=== PATIENT | female | born 1945 | race Caucasian/White ===

== ENCOUNTER 2017-05-24 18:51 | Inpatient (IN) ==
[2017-05-24] MEDS ORDERED: ONDANSETRON 4 MG/2 ML VIAL IV STA (19:36)
[2017-05-24] MEDS ORDERED: SODIUM CHLORIDE 0.9% 1,000 ML IV STA (19:36)
--- NOTE | 2017-05-24 19:42 | Emergency Department Note ---
Arrival - Arrival Chief Complaint: Nausea/Vomiting/Diarrhea Stated Complaint: nausea/diarrhea/headache/weakness/times 2 days ED Nursing Triage Note: Patient complains of severe, nausea, vomiting, fever, headache and weakness that has been going on for the past two days. Patient states that she has not been able to keep anything down. No active vomiting noted upon triage. Patient has a history of HTN, diabetes, colon ca. Patient states that her blood sugar prior to triage was 131. Awake, alert and able to answer questions upon triage. Mode of Arrival: Wheelchair Limitations: No Limitations Source: Patient Time Seen by Provider: 05/24/17 19:23 - History of Present Illness HPI Narrative: Patient complains of nausea, vomiting and diarrhea for the past 2 days. She says she has not had much intake due to the nausea and vomiting and now feels weak and dizzy and has generalized body aches and malaise. She also complains of a "frontal and maxillary sinus headache" and a nonproductive "cough from sinus drainage." She has felt hot and cold but does not know if she has had fever. No known sick contacts. Date of Last Menstrual Period: hysterectomy Allergies/Adverse Reactions: Allergies Allergy/AdvReac Type Severity Reaction Status Date / Time codeine Allergy Nausea Verified 05/24/17 19:04 Home Medications: Home Medications Medication Instructions Recorded Confirmed Type Fluoxetine HCl 20 mg PO DAILY 06/27/15 05/24/17 History Insulin NPH Hum/Reg Insulin Hm 100 unit SUBCUT DAILY 06/27/15 05/24/17 History [Relion Novolin 70-30 Vial] Rosuvastatin [Crestor] 20 mg PO DAILY 06/27/15 05/24/17 History Verapamil HCl [Verapamil ER Cap] 120 mg PO DAILY 06/27/15 05/24/17 History metFORMIN [Glucophage] 500 mg PO DAILY 06/27/15 05/24/17 History raNITIdine HCl [Zantac Tab] 300 mg PO DAILY 06/27/15 05/24/17 History Aspirin EC Tab 81 mg PO DAILY tablet 06/28/15 05/24/17 Rx Lisinopril [Prinivil] 10 mg PO DAILY #30 tablet 06/28/15 05/24/17 Rx Pantoprazole Tab [Protonix Tab] 40 mg PO BID #60 tablet 06/28/15 05/24/17 Rx Medical Supply, Miscellaneous 1 tablespoon PO DIRECTED #200 09/14/15 Rx [Airzone & Miniwright Afs] each Losartan [Cozaar] 50 mg PO DAILY 05/24/17 05/24/17 History hydroCHLOROthiazide 12.5 mg PO Q6H 05/24/17 05/24/17 History [Hydrochlorothiazide] Review of System - Review of System 12 point system: reviewed and no additional remarkable complaints except as stated - Review of System Constitutional: Present: chills, fever (Subjective), weakness Head/Ears/Nose/Throat: Present: other (Postnasal drip). Absent: nasal drainage , sore throat Respiratory: Present: cough. Absent: respiratory distress, wheezing Cardiovascular: Absent: chest pain Gastrointestinal: Present: nausea, vomiting, diarrhea. Absent: abdominal pain Genitourinary female: Absent: dysuria Neurological: Present: headache Medical,Surgical,& Family Hx - Medical History Cardio: History of: Hypertension No history of: Cerebrovascular Disease Endocrine: History of: Diabetes Mellitus (IDDM), Diabetes Mellitus (NIDDM), Dyslipidemia Rheumatology: No history of;: Rheumatoid Arthritis, Systemic Lupus Erythematosus Respiratory: History of: Obstructive Sleep Apnea No history of: Asthma, Respiratory Problems Genitourinary: No history of: Recurring Urinary Tract Infections Gastrointestinal: History of: GERD, Liver Problems (fatty liver), Gastrointestinal Cancer (malignant polyp removed), GI Problems (gastritis 2000) Musculoskeletal: History of: Musculoskeletal Problems (ARTHITIS "EVERYWHERE") Hematology: No history of: Blood Transfusion Reaction, Bleeding Problems Other: History of: Cancer (COLON CA) - Surgical History Cardiac Surgeries: Patient Denies: Cardiac Catheterization, Cardiac Surgery HEENT Surgeries: Surgical HX of: Tonsilectomy & Adenoidectomy Abdominal Surgeries: Surgical HX of: Abdominal Surgery (COLON CA REMOVAL 2013), Appendectomy, Cholecystectomy Reproductive Surgeries: Surgical HX of;: Section, Hysterectomy (FULL) - Family History Family History: Reports;: Family Cancer (FATHER- COLON CA), Family Diabetes ( MOTHER, FATHER, ALL SIBLINGS), Family Heart Disease (4 BROTHERS, MOTHER, FATHER) , Family Hypertension (ALL SIBLINGS, MOTHER AND FATHER) Denies;: Family Psychiatric Problems, Family Stroke - Social History Smoking Status: Never smoker Frequency of Alcohol Use: None Type of Drug Use: None Exam Physical Examination: GENERAL: Alert. No acute distress. HEENT: Normocephalic and atraumatic. There is no nasal drainage. No pharyngeal erythema or exudate. Dry mucous membranes NECK: Normal inspection. Supple. No lymphadenopathy or meningismus. LUNGS: No respiratory distress. Clear to auscultation bilaterally, no wheezes, rales or rhonchi. HEART: Regular rate and rhythm. ABDOMEN: Soft, nontender and nondistended with normoactive bowel sounds. Large midline scar with firm irregular area of dense scarring at the lower left. BACK: Normal inspection. SKIN: Color normal. Warm and dry. EXTREMITIES: Nontender. Normal range of motion. No pedal edema. NEUROLOGICAL/PSYCHIATRIC: Alert and oriented -3 with normal mood and affect. Cranial nerves normal. No motor or sensory deficit. Vital Signs: Vital Signs Temperature 98.3 F 05/24/17 19:07 Pulse Rate 87 05/24/17 19:21 Respiratory Rate 18 05/24/17 19:21 Blood Pressure 146/67 05/24/17 19:21 O2 Sat by Pulse Oximetry 99 05/24/17 19:21 Course Course Narrative: Note: The multiple negatives in the past medical history were not marked by me. They are the result of the triage process, past medical records or other unknown causes. Due to time constraints, these were not all reviewed with the patient and the backslashes were not removed from the chart. They should be ignored. - Reevaluation(s) Reevaluation #1: I have discussed the patient with Dr. Castañeda who will see her in the ER and admit. Time: 22:10 Results - Labs CBC & BMP: 05/24/17 20:36 05/24/17 20:36 Lab Results: I have reviewed the patients labs Labs: Laboratory Tests 05/24/17 05/24/17 20:36 20:36 Magnesium 1.7 L Total Bilirubin 1.10 H AST 25 ALT 28 Alkaline Phosphatase 40 L Amylase 137 H Lipase 820.0 H Urine RBC 1 Urine WBC 2 Urine Bacteria Few Ur Culture Indicated? Not indicated Microbiology 05/24/17 20:36 Nasal Aspirate Influenza Types A,B Antigen (FABRICIO) - Final Negative for Influenza A Ag Negative for Influenza B Ag - Impressions KUB shows moderate distention of bowel diffusely. Chest x-ray shows no acute abnormality. Disposition Clinical Impression: Pancreatitis, Headache Case discussed with: patient, patient's family Disposition: Still a Patient Condition: Stable Time of Disposition: 22:10
[2017-05-24] MEDS ORDERED: ONDANSETRON 4 MG/2 ML VIAL ONE (20:12)
--- NOTE | 2017-05-24 20:18 | XRay Report ---
Portable chest. Indication: Cough. Comparison: June 27, 2015. The heart is normal in size. The mediastinal contours are unremarkable. The pulmonary vasculature is normal. There is no consolidation, pneumothorax, or pleural effusion. Degenerative changes are noted within the spinal column. Impression: No acute abnormality. PROCEDURE INTERPRETED AT [facility] DEPARTMENT OF RADIOLOGY Final Report Signed by: Dr. Gabi Tabor
--- NOTE | 2017-05-24 20:19 | XRay Report ---
KUB. Indication: Vomiting. Comparison: September 14, 2015. Surgical clips are noted in the right upper quadrant. There is gaseous distention of small and large intestine to the level of the rectum. Vascular calcifications are noted. Injection granulomas of the hips. Impression: Moderate gaseous distention of bowel diffusely. PROCEDURE INTERPRETED AT [facility] DEPARTMENT OF RADIOLOGY Final Report Signed by: Dr. Gabi Tabor
[2017-05-24 21:12] LABS: Basophils % 0.3 % (0.0-0.8); Hematocrit 34.5 VOL% (35.7-47.0); Hemoglobin 12.4 GM/DL (12.0-16.0); Immature Granulocytes % 0.4 %; Immature Granulocytes Absolute 0.04 #; Lymphocytes # 1.3 10*3/uL (1.4-4.0); Lymphocytes % 12.9 % (21.3-54.2); Mean Corpuscular HGB Conc 35.9 GM/DL (32-36); Mean Corpuscular Hemoglobin 32 PG (27-34); Mean Corpuscular Volume 88.5 FL (87-102); Mean Platelet Volume 10.6 FL (9.6-12.0); Monocytes # 0.8 10*3/uL (0.11-0.8); Monocytes % 7.4 % (1.7-12.7); Neutrophils # 8.2 10*3/uL (1.4-7.4); Platelet Count 229 T/CUMM (130-400); Red Cell Distribution Width 12.4 % (9.3-17.3); White Blood Count 10.4 T/CUMM (4-12)
[2017-05-24 21:32] LABS: Albumin 3.8 G/DL (3.4-5.0); Bilirubin,Total 1.1 MG/DL (0.2-1.0); Calcium 8.6 MG/DL (8.5-10.1); Magnesium 1.7 MG/DL (1.8-2.4); Osmolality,Calculated 277.7 MOS/KG (273-304); Potassium 4.7 MMOL/L (3.5-5.1)
[2017-05-24 21:52] LABS: Apearance,Urine Slightly Hazy (Clear); Bacteria,Urine Few /HPF (Few); Bilirubin,Urine Negative (Negative); Blood, Urine Negative (Negative); Glucose,Urine (UA) Negative (Negative); Ketones,Urine Negative (Negative); Mucus,Urine Few /LPF (Occasional); Nitrite,Urine Negative (Negative); Protein,Urine 30 MG/DL; RBC,Urine 1 /HPF (0-4); Transitional Epi Cells,Urine Occasional /HPF (<1); Urine Color Yellow (Yellow); Urine Specific Gravity 1.019 (1.001-1.035); Urine Urobilinogen < 2.0 EU/DL (0.2-1.0); WBC,Urine 2 /HPF (0-6)
[2017-05-24] MEDS ORDERED: KETOROLAC 30 MG/1 ML VIAL IV STA (22:04)
[2017-05-24] MEDS ORDERED: KETOROLAC 30 MG/1 ML VIAL ONE (22:07)
[2017-05-24] MEDS ORDERED: traZODone 50 MG TABLET PO PRN (23:03)
[2017-05-24] MEDS ORDERED: GLUCAGON 1 MG VIAL IM PRN (23:10)
[2017-05-24] MEDS ORDERED: DEXTROSE 50% 25 GM/50 ML VIAL IV PRN (23:10)
[2017-05-24] MEDS ORDERED: NON-FORMULARY MEDICATION (Hydrochlorothiazide [Hydrochlorothiazide] 12.5 MG) PO SCH (23:15)
[2017-05-24] MEDS ORDERED: [UNRECOGNIZED DRUG - OTHER] PO SCH (23:15)
--- NOTE | 2017-05-24 23:15 | Hospitalist History & Physical ---
Assessment and Plan (1) Gastroenteritis Status: Acute Current Visit: Yes (2) Gastritis Status: Acute Current Visit: No (3) Pancreatitis Status: Acute Assessment and plan: Our plan for this patient will be admitting her to our service. We will put her on IV fluids and clear liquid diet. Check her lipase in the morning. Check her stool for C. difficile and other culture. Follow-up labs in the morning and adjust plans appropriate. Hold her scheduled insulin doses and sliding scale for now. Current Visit: Yes History of Present Illness Chief complaint: Nausea vomiting diarrhea History of present illness: Ms. Osullivan is a 72 year old female past medical history significant for diabetes includes cholesterol hypertension and colon cancer who was in her normal state of health to the past few days. Patient has a history of multiple complaints and has various problems with her sinuses and she was on some antibiotics but for the past 3 days she has had significant diarrhea and emesis. Patient reports that it started on . Her last episode of emesis and diarrhea was today. Family reports that the diarrhea has a very putrid odor to it I was consulted to admit her. Patient found to have an elevated lipase. Home Medications Medication Instructions Recorded Confirmed Type Fluoxetine HCl 20 mg PO DAILY 06/27/15 05/24/17 History Insulin NPH Hum/Reg Insulin Hm 100 unit SUBCUT DAILY 06/27/15 05/24/17 History [Relion Novolin 70-30 Vial] Rosuvastatin [Crestor] 20 mg PO DAILY 06/27/15 05/24/17 History Verapamil HCl [Verapamil ER Cap] 120 mg PO DAILY 06/27/15 05/24/17 History metFORMIN [Glucophage] 500 mg PO DAILY 06/27/15 05/24/17 History raNITIdine HCl [Zantac Tab] 300 mg PO DAILY 06/27/15 05/24/17 History Aspirin EC Tab 81 mg PO DAILY tablet 06/28/15 05/24/17 Rx Lisinopril [Prinivil] 10 mg PO DAILY #30 tablet 06/28/15 05/24/17 Rx Pantoprazole Tab [Protonix Tab] 40 mg PO BID #60 tablet 06/28/15 05/24/17 Rx Medical Supply, Miscellaneous 1 tablespoon PO DIRECTED #200 09/14/15 Rx [Airzone & Miniwright Afs] each Losartan [Cozaar] 50 mg PO DAILY 05/24/17 05/24/17 History hydroCHLOROthiazide 12.5 mg PO Q6H 05/24/17 05/24/17 History [Hydrochlorothiazide] Allergies Allergy/AdvReac Type Severity Reaction Status Date / Time codeine Allergy Nausea Verified 05/24/17 19:04 Medical,Surgical,& Family Hx - Medical History Cardio: History of: Hypertension No history of: Cerebrovascular Disease Neurology: No history of: Cerebrovascular Accident Endocrine: History of: Diabetes Mellitus (IDDM), Diabetes Mellitus (NIDDM), Dyslipidemia Rheumatology: No history of;: Rheumatoid Arthritis, Systemic Lupus Erythematosus Respiratory: History of: Obstructive Sleep Apnea No history of: Asthma, Respiratory Problems Genitourinary: No history of: Recurring Urinary Tract Infections Gastrointestinal: History of: GERD, Liver Problems (fatty liver), Gastrointestinal Cancer (malignant polyp removed), GI Problems (gastritis 1999) Musculoskeletal: History of: Musculoskeletal Problems (ARTHITIS "EVERYWHERE") Hematology: No history of: Blood Transfusion Reaction, Bleeding Problems Other: History of: Cancer (COLON CA) - Surgical History Cardiac Surgeries: Patient Denies: Cardiac Catheterization, Cardiac Surgery HEENT Surgeries: Surgical HX of: Tonsilectomy & Adenoidectomy Abdominal Surgeries: Surgical HX of: Abdominal Surgery (COLON CA REMOVAL 2013), Appendectomy, Cholecystectomy Reproductive Surgeries: Surgical HX of;: Section, Hysterectomy (FULL) - Family History Family History: Reports;: Family Cancer (FATHER- COLON CA), Family Diabetes ( MOTHER, FATHER, ALL SIBLINGS), Family Heart Disease (4 BROTHERS, MOTHER, FATHER) , Family Hypertension (ALL SIBLINGS, MOTHER AND FATHER) Denies;: Family Psychiatric Problems, Family Stroke - Social History Smoking Status: Never smoker Frequency of Alcohol Use: None Type of Drug Use: None 12 point system: reviewed and no additional remarkable complaints except as stated Exam - Constitutional Vitals: Period Temp Pulse Resp BP Sys/Bethea Pulse Ox Last 24 Hr 98.3 F 87-91 18-20 118-146/55-67 98-99 General appearance: morbidly obese - Head Head exam: Present: normal inspection - Eye Eye exam: Present: EOMI Pupils: Present: RAUL - ENT ENT exam: Present: normal exam - Neck Neck exam: Present: normal inspection - Respiratory Respiratory exam: Present: clear to auscultation bilaterally - Cardiovascular Cardiovascular exam: Present: regular rate and rhythm - GI/Abdominal GI/Abdominal exam: Present: normal bowel sounds, tenderness (Epigastrium) - Extremities Exam Extremities exam: Present: normal inspection - Back Exam Back exam: Present: normal inspection - Neurological Exam Neurological exam: Present: alert, oriented X3 - Psychiatric Psychiatric exam: Present: normal affect, normal mood - Skin Skin exam: Present: normal color Results - Labs CBC & BMP: 05/24/17 20:36 05/24/17 20:36
[2017-05-24] MEDS: KETOROLAC 30 MG/1 ML VIAL IV PRN (23:40)
[2017-05-24] MEDS: ACETAMINOPHEN 325 MG TABLET PO PRN (23:40)
[2017-05-25] MEDS: SODIUM CHLORIDE 0.9% 1,000 ML IV SCH ×2 (00:22→09:07)
[2017-05-25] MEDS ORDERED: METOCLOPRAMIDE 10 MG/2 ML VIAL IV ONE (04:08)
[2017-05-25] MEDS ORDERED: diphenhydrAMINE 50 MG/1 ML VIAL IV ONE (04:08)
[2017-05-25 06:33] LABS: Basophils % 0.3 % (0.0-0.8); Hematocrit 33.2 VOL% (35.7-47.0); Hemoglobin 11.7 GM/DL (12.0-16.0); Immature Granulocytes % 0.6 %; Immature Granulocytes Absolute 0.05 #; Lymphocytes # 1.1 10*3/uL (1.4-4.0); Lymphocytes % 14.1 % (21.3-54.2); Mean Corpuscular HGB Conc 35.2 GM/DL (32-36); Mean Corpuscular Hemoglobin 31 PG (27-34); Mean Corpuscular Volume 88.5 FL (87-102); Mean Platelet Volume 11.5 FL (9.6-12.0); Monocytes # 1.1 10*3/uL (0.11-0.8); Neutrophils # 5.5 10*3/uL (1.4-7.4); Platelet Count 202 T/CUMM (130-400); Red Blood Count 3.75 MC/CUMM (3.8-5.5); Red Cell Distribution Width 12.5 % (9.3-17.3); White Blood Count 7.7 T/CUMM (4-12)
[2017-05-25 07:09] LABS: Albumin 3.1 G/DL (3.4-5.0); Bilirubin,Total 1.6 MG/DL (0.2-1.0); Calcium 7.8 MG/DL (8.5-10.1); Osmolality,Calculated 279.8 MOS/KG (273-304); Potassium 4.4 MMOL/L (3.5-5.1); Total Protein 6.4 G/DL (6.4-8.3)
[2017-05-25 07:50] LABS: Hypochromasia Slight; Microcytosis 1+
[2017-05-25] MEDS: FAMOTIDINE 20 MG TABLET PO SCH (08:54)
[2017-05-25] MEDS: ROSUVASTATIN 20 MG TABLET PO SCH (08:54)
[2017-05-25] MEDS: FLUoxetine 20 MG CAPSULE PO SCH (08:55)
[2017-05-25] MEDS: ENOXAPARIN 40 MG/0.4 ML SYRINGE SUBCUT SCH (08:55)
[2017-05-25] MEDS: ASPIRIN EC 81 MG TABLET PO SCH (08:55)
[2017-05-25] MEDS: PANTOPRAZOLE 40 MG TABLET PO SCH ×2 (08:55→20:36)
[2017-05-25] MEDS: INSULIN REGULAR 100 UNIT/ML SUBCUT SCH ×4 (08:58→20:35)
[2017-05-25] MEDS ORDERED: LISINOPRIL 10 MG TABLET PO SCH (09:00)
[2017-05-25] MEDS ORDERED: VERAPAMIL SR 120 MG TABLET PO SCH (09:00)
[2017-05-25] MEDS ORDERED: LOSARTAN 50 MG TABLET PO SCH (09:00)
--- NOTE | 2017-05-25 11:57 | Hospitalist Progress Note ---
Assessment and Plan (1) Gastroenteritis Status: Acute Assessment and plan: gastroenteritis vs ileus, stool studies pending, replace diarrhea with 1/2 with bicarbonate and potassium Current Visit: Yes (2) Pancreatitis Status: Acute Assessment and plan: clear liquids, should resolve without intervention, nausea better Current Visit: Yes (3) Essential hypertension Status: Chronic Assessment and plan: hold blood meds for now Current Visit: No (4) Hypomagnesemia Status: Acute Assessment and plan: replace and recheck in am Current Visit: Yes Hospitalist: Subjective Interval history: Patient is feeling just miserable. She can even make it to the bathroom without pooping all over the floor and the toilet. Patient also reports having some bloody stools. Stool cultures have not been sent down yet. Patient is weak and lightheaded. I will stop her blood pressure medicines for now. Exam - Constitutional Vitals: Period Temp Pulse Resp BP Sys/Bethea Pulse Ox Last 24 Hr 96.5 F-100.4 F 87-98 18-20 111-146/51-74 95-99 Exam: Heart Rate-[tachy] Lungs-[CTAB] GI-[+bs soft, NT] Ext-[no edema] Neuro [Motor 5/5], [alert and oriented times 3] psych [normal mood and affect] General [no acute distress] Results - Labs CBC & BMP: 05/25/17 05:44 05/25/17 05:44 Lab Results: I have reviewed the past 24 hour labs Labs: stool studies pending - Diagnostic Findings Procedure: Chest x-ray: report reviewed by me (no acute changes ), KUB x-ray: report reviewed by me (moderate gaseous distention of bowel )
[2017-05-25] MEDS ORDERED: MAGNESIUM SULF RIDER 2 GM in PREMIX 1 EACH IV ONE (12:02)
[2017-05-25] MEDS: ONDANSETRON 4 MG/2 ML VIAL IV PRN ×2 (12:29→19:28)
[2017-05-25] MEDS: KETOROLAC 30 MG/1 ML VIAL IV PRN ×2 (12:29→19:28)
[2017-05-25] MEDS ORDERED: PROMETHAZINE 25 MG/1 ML VIAL IM PRN (12:38)
[2017-05-25] MEDS ORDERED: MORPHINE 2 MG/1 ML SYRINGE IV PRN (12:38)
[2017-05-25] MEDS: SODIUM ACETATE IV SCH (16:06)
[2017-05-25] MEDS: SODIUM CHLORIDE 0.45% IV SCH (16:06)
[2017-05-25] MEDS: POTASSIUM CHLORIDE IV SCH (16:06)
[2017-05-25] MEDS: ACETAMINOPHEN 325 MG TABLET PO PRN (19:32)
[2017-05-25] MEDS ORDERED: LOPERAMIDE 2 MG CAPSULE PO ONE (20:12)
[2017-05-26] MEDS: SODIUM ACETATE IV SCH ×3 (00:16→16:58)
[2017-05-26] MEDS: SODIUM CHLORIDE 0.45% IV SCH ×3 (00:16→16:58)
[2017-05-26] MEDS: POTASSIUM CHLORIDE IV SCH ×3 (00:16→16:58)
[2017-05-26] MEDS: LOPERAMIDE 2 MG CAPSULE PO PRN ×2 (02:21→20:36)
[2017-05-26 06:25] LABS: Basophils % 0.8 % (0.0-0.8); Eosinophils % 0.2 % (0.00-10.9); Hemoglobin 11.3 GM/DL (12.0-16.0); Immature Granulocytes % 0.2 %; Immature Granulocytes Absolute 0.01 #; Lymphocytes # 1.2 10*3/uL (1.4-4.0); Lymphocytes % 23.4 % (21.3-54.2); Mean Corpuscular HGB Conc 36.5 GM/DL (32-36); Mean Corpuscular Hemoglobin 32 PG (27-34); Mean Corpuscular Volume 87.8 FL (87-102); Mean Platelet Volume 10.6 FL (9.6-12.0); Monocytes # 1.3 10*3/uL (0.11-0.8); Monocytes % 24.8 % (1.7-12.7); Neutrophils # 2.6 10*3/uL (1.4-7.4); Neutrophils % 50.6 % (38.7-73.9); Platelet Count 200 T/CUMM (130-400); Red Blood Count 3.53 MC/CUMM (3.8-5.5); Red Cell Distribution Width 12.4 % (9.3-17.3); White Blood Count 5.2 T/CUMM (4-12)
[2017-05-26 06:51] LABS: Calcium 7.8 MG/DL (8.5-10.1); Magnesium 2.2 MG/DL (1.8-2.4); Osmolality,Calculated 275.8 MOS/KG (273-304); Potassium 4.8 MMOL/L (3.5-5.1)
[2017-05-26 07:13] LABS: Band Neutrophils 7 % (0-10); Lymphocytes 30 % (20-55); Segmented Neutrophils 46 % (50-85); Total Cells Counted 100
[2017-05-26 07:14] LABS: Hypochromasia 1+; Microcytosis 1+
[2017-05-26 07:15] LABS: Platelet Estimate Normal
[2017-05-26] MEDS: INSULIN REGULAR 100 UNIT/ML SUBCUT SCH ×4 (08:39→20:32)
[2017-05-26] MEDS: ONDANSETRON 4 MG/2 ML VIAL IV PRN ×2 (08:58→17:00)
[2017-05-26] MEDS: ROSUVASTATIN 20 MG TABLET PO SCH ×2 (09:00→17:00)
[2017-05-26] MEDS: FLUoxetine 20 MG CAPSULE PO SCH ×2 (09:00→16:59)
[2017-05-26] MEDS: ASPIRIN EC 81 MG TABLET PO SCH ×2 (09:00→17:00)
[2017-05-26] MEDS: FAMOTIDINE 20 MG TABLET PO SCH ×2 (09:00→16:59)
[2017-05-26] MEDS: PANTOPRAZOLE 40 MG TABLET PO SCH ×3 (09:00→20:27)
[2017-05-26] MEDS: ENOXAPARIN 40 MG/0.4 ML SYRINGE SUBCUT SCH (09:01)
--- NOTE | 2017-05-26 09:08 | Hospitalist Progress Note ---
Assessment and Plan (1) Gastroenteritis Status: Acute Assessment and plan: Patient seem to have acute gastroenteritis. We will continue with IV fluid monitor electrolytes and obtain CT scan abdomen to rule out any other pathology especially with the presence of elevated lipase on admission Current Visit: Yes (2) Pancreatitis Status: Acute Assessment and plan: Patient presented with a diarrhea and elevated lipase. I am not sure is acute pancreatitis or it this is due to current GI infection. CT scan abdomen may help to visualize pancreatic anatomy Current Visit: Yes (3) Anemia Status: Acute Assessment and plan: Just little drop of hemoglobin hematocrit since admission but patient has been hydrated. Notice stool occult blood positive. Patient has history of colon cancer consult GI Current Visit: Yes (4) Essential hypertension Status: Chronic Assessment and plan: Blood pressure has been controlled Current Visit: No Hospitalist: Subjective Interval history: Ms. Osullivan is a 72 year old female past medical history significant for diabetes includes, hypercholesterolemia, hypertension and colon cancer. She had partial colectomy in 2012 in 2013. She had colonoscopy last year. She was admitted on May 24, 2017 with complaint of abdominal pain nausea vomiting and diarrhea. She reported pain in the abdomen all over. She has multiple episodes of loose stool about 9-10 per day. She also report low-grade fever. She was recently on antibiotics for a sinus. She had an evaluation after his admission here but C differential was negative. She had elevated lipase at 820 on admission. Yesterday it was down to 607. She has been on IV fluid. She is symptomatic concern about her diarrhea and not able to tolerate any p.o. diet. Exam - Constitutional Vitals: Period Temp Pulse Resp BP Sys/Bethea Pulse Ox Last 24 Hr 97.8 F-100.4 F 73-93 16-18 112-134/50-76 94-98 General appearance: no acute distress - Respiratory Respiratory exam: Present: clear to auscultation bilaterally. Absent: rales, rhonchi - Cardiovascular Cardiovascular exam: Present: regular rate and rhythm. Absent: tachycardia - GI/Abdominal GI/Abdominal exam: Present: normal bowel sounds, tenderness (Scar from previous surgery noted in midline with some subcutaneous palpable nodule structures from previous surgery and reported chronic by patient .some discomfort all over the abdomen but no rigidity or rebound.), soft. Absent: rebound - Extremities Exam Extremities exam: Present: normal inspection. Absent: edema - Neurological Exam Neurological exam: Present: alert, oriented X3 Results - Labs CBC & BMP: 05/26/17 06:09 05/26/17 06:09
--- NOTE | 2017-05-26 12:19 | Gastrointestinal Progress Note ---
Exam (Progress Note) - Constitutional Vitals: Period Temp Pulse Resp BP Sys/Bethea Pulse Ox Last 24 Hr 97.8 F-100.1 F 73-93 16-18 112-138/50-76 92-97 Results - Labs CBC & BMP: 05/26/17 06:09 05/26/17 06:09
--- NOTE | 2017-05-26 12:25 | Gastrointestinal Consult Note ---
<Vickie Nye - Last Filed: 05/26/17 12:19> Assessment and Plan (1) Abdominal pain Status: Acute Assessment and plan: 05/26-5 day history of left lower quadrant abdominal pain with associated intractable diarrhea, nausea and vomiting. Trace amount of occult blood in stool, otherwise negative stool studies with negative C. difficile. Improvements in nausea and vomiting with continued intractable diarrhea with incontinence and nocturnal defecation. CT of abdomen with contrast pending for this morning. Plan an addendum to follow by Dr. Larose. Current Visit: Yes History of Present Illness Chief complaint: Nausea, vomiting, diarrhea History of present illness: Ms. Osullivan is a 72 year old female who was admitted to the hospital on 05/24 following 3 day history of nausea, vomiting and diarrhea. Patient states she was in her usual state of health until approximately 5 days ago when she had a fairly sudden onset of nausea and vomiting. Shortly after this she also had onset of left lower quadrant abdominal pain and began having intractable diarrhea. She denies any coffee-ground or hematemesis with vomiting and denies any melena or hematochezia with the diarrhea stating she was merely passing [place]. She denies any fever or chills along with this. She states that she did have multiple stools, too numerous to count, with nocturnal defecation and at times incontinence. She denies any recent ill contact exposure that she is aware of. She states that approximately a month ago she was seen in clinic for sinus infection and was treated with antibiotics. On admission she was also noted to have an elevated lipase level of 820 however this is trended down today to normal at 87. She has no prior history of pancreatitis in the past. Denies any recent medication changes. She is on metformin but states she has been the same medication for many years and has never had problems with diarrhea in the past. States that her blood sugars are fairly well controlled. She denies any upper quadrant abdominal pain associated with this. She states that she has never had a GI illness like this before. Prior to onset of this illness she denies any weight loss. She has a history of colon cancer with colectomy in 2013. Prior to this she has also had removal of a villous adenoma with right colectomy in 2012. She has also had 4 sections, hysterectomy, oophorectomy, laparoscopic cholecystectomy, and a bladder tack in the past. She has several hard areas of scar tissue on her abdomen from her prior surgeries. She states her last colonoscopy was a year ago however no records noted in our facility database. Her last on EGD was in 2014 with only findings of GERD and a stricture with dilation. She is for CT of abdomen with contrast this morning. Home Medications Medication Instructions Recorded Confirmed Type Fluoxetine HCl 20 mg PO DAILY 06/27/15 05/25/17 History Insulin NPH Hum/Reg Insulin Hm 100 unit SUBCUT DAILY 06/27/15 05/25/17 History [Relion Novolin 70-30 Vial] Rosuvastatin [Crestor] 20 mg PO DAILY 06/27/15 05/25/17 History Verapamil HCl [Verapamil ER Cap] 180 mg PO DAILY 06/27/15 05/25/17 History metFORMIN [Glucophage] 200 mg PO DAILY 06/27/15 05/25/17 History raNITIdine HCl [Zantac Tab] 300 mg PO DAILY 06/27/15 05/25/17 History Aspirin EC Tab 81 mg PO DAILY tablet 06/28/15 05/25/17 Rx Losartan [Cozaar] 50 mg PO DAILY 05/24/17 05/25/17 History Allergies Allergy/AdvReac Type Severity Reaction Status Date / Time codeine Allergy Nausea Verified 05/24/17 19:04 Medical,Surgical,& Family Hx - Medical History Cardio: History of: Hypertension No history of: Cerebrovascular Disease Neurology: No history of: Cerebrovascular Accident Endocrine: History of: Diabetes Mellitus (IDDM), Diabetes Mellitus (NIDDM), Dyslipidemia Rheumatology: No history of;: Rheumatoid Arthritis, Systemic Lupus Erythematosus Respiratory: History of: Obstructive Sleep Apnea No history of: Asthma, Respiratory Problems Genitourinary: No history of: Recurring Urinary Tract Infections Gastrointestinal: History of: GERD, Liver Problems (fatty liver), Gastrointestinal Cancer (malignant polyp removed), GI Problems (gastritis 2000) Musculoskeletal: History of: Musculoskeletal Problems (ARTHITIS "EVERYWHERE") Hematology: No history of: Blood Transfusion Reaction, Bleeding Problems Other: History of: Cancer (COLON CA) - Surgical History Cardiac Surgeries: Sugical HX of: Cardiac Catheterization Patient Denies: Cardiac Surgery Neurologic Surgeries: Patient denies: Neurologic Surgery HEENT Surgeries: Surgical HX of: Tonsilectomy & Adenoidectomy Abdominal Surgeries: Surgical HX of: Abdominal Surgery (COLON CA REMOVAL 2013), Appendectomy, Cholecystectomy, Colonoscopy, EGD Reproductive Surgeries: Surgical HX of;: Section, Hysterectomy (FULL) - Family History Family History: Reports;: Family Cancer (FATHER- COLON CA), Family Diabetes ( MOTHER, FATHER, ALL SIBLINGS), Family Heart Disease (4 BROTHERS, MOTHER, FATHER) , Family Hypertension (ALL SIBLINGS, MOTHER AND FATHER) Denies;: Family Psychiatric Problems, Family Stroke - Social History Smoking Status: Never smoker Frequency of Alcohol Use: None Type of Drug Use: None 12 point system: reviewed and no additional remarkable complaints except as stated - Constitutional Constitutional: Present: as per HPI - EENT Eyes: Present: as per HPI Ears: Present: as per HPI Nose, mouth and throat: Present: as per HPI - Cardiovascular Cardiovascular: Present: as per HPI - Respiratory Respiratory: Present: as per HPI - Gastrointestinal Gastrointestinal: Present: as per HPI, abdominal pain, cramping, diarrhea, loose stools, nausea, vomiting - Genitourinary Genitourinary: Present: as per HPI - Musculoskeletal Musculoskeletal: Present: as per HPI - Neurological Neurological: Present: as per HPI - Psychiatric Psychiatric: Present: as per HPI - Endocrine Endocrine: Present: as per HPI - Hematologic/Lymphatic Hematologic/Lymphatic: Present: as per HPI Exam - Constitutional Vitals: Period Temp Pulse Resp BP Sys/Bethea Pulse Ox Last 24 Hr 97.8 F-100.1 F 73-93 16-18 112-138/50-76 92-97 General appearance: normal weight, no acute distress - Head Head exam: Present: normal inspection, normocephalic - Eye Eye exam: Present: other (Lids and conjunctive are unremarkable). Absent: scleral icterus - ENT ENT exam: Present: normal exam, normal oropharynx - Neck Neck exam: Present: normal inspection - Respiratory Respiratory exam: Present: clear to auscultation bilaterally. Absent: rales, rhonchi, wheezes - Cardiovascular Cardiovascular exam: Present: regular rate and rhythm. Absent: diastolic murmur , JVD, systolic murmur - GI/Abdominal GI/Abdominal exam: Present: normal bowel sounds, tenderness (Left lower quadrant ), soft. Absent: ascites, distended, mass, organomegaly - Extremities Exam Extremities exam: Present: normal inspection, full ROM - Back Exam Back exam: Present: normal inspection - Neurological Exam Neurological exam: Present: alert, oriented X3 - Psychiatric Psychiatric exam: Present: normal affect, normal mood - Skin Skin exam: Present: normal color, warm, dry Results - Labs CBC & BMP: 05/26/17 06:09 05/26/17 06:09 Lab Results: I have reviewed the past 24 hour labs - Diagnostic Findings Procedure: KUB x-ray: report reviewed by me <Ramirez Larose - Last Filed: 05/26/17 18:43> History of Present Illness Chief complaint: 3030 History of present illness: Ms. Osullivan is a 72 year old female Exam - Constitutional Vitals: Period Temp Pulse Resp BP Sys/Bethea Pulse Ox Last 24 Hr 97.8 F-100.1 F 73-93 16-18 118-143/46-76 92-97 Results - Labs CBC & BMP: 05/26/17 06:09 05/26/17 06:09
--- NOTE | 2017-05-26 14:06 | CT Report ---
CT of the abdomen and pelvis with and without intravenous contrast. Indication: Generalized abdominal pain and diarrhea. Comparison: June 07, 2015. 100 cc Omni 350. Axial images were obtained with sagittal and coronal 2-D reconstructions. Oral contrast was also administered. The heart is mildly enlarged. There is coronary artery calcification. There is no pericardial or pleural effusion. There are areas of fibrosis and scarring within the lung bases. There is an epicardial lymph node present, measuring 9 mm. This is stable to decreased in size compared to the previous exam. The liver is normal in size. There is mild fatty infiltration of the liver. There is no intrahepatic biliary ductal dilatation. The gallbladder has been removed. There are no intraparenchymal masses identified. Along the lower right lobe of the liver, at its tip, around the capsular margin, there are multiple mildly irregular calcifications noted, not seen on the previous exam. The spleen is normal in size, with accessory splenic nodules. There is no adrenal enlargement. There is no pancreatic enlargement. The kidneys are normal in size, location, and contour, without focal lesion or hydronephrosis. The abdominal aorta is of normal caliber. There is prominent plaque within its wall, extending into both iliac arteries, and the celiac and SMA. There is a small hiatal hernia. The stomach is collapsed. The proximal loops of small intestine are not dilated. The distal loops of small intestine are dilated with minimal wall thickening present. There is an anastomosis present at the right lower quadrant. Beyond the anastomosis, the entire colonic wall is thickened and edematous. No evidence of obstruction, contrast extends to the rectum. There are peripancreatic lymph nodes which remain stable. There are mesenteric lymph nodes, at least one of which has increased in size, now measuring 15 mm. There is no free air or free fluid within the peritoneal cavity. The urinary bladder presents a normal appearance. The pelvic organs have been removed. There is no inguinal or iliac chain lymphadenopathy. Along the incision site, involving the peritoneal wall, and extending in the subcutaneous fat of the abdomen throughout its length at the midline, there is bulky lobular calcification, measuring up to 5.5 cm in diameter, significantly worsened compared to the previous exam. Injection granulomas are seen along each hip. Osseous structures are unremarkable. Impression: 1. There is a diffuse colitis present, nonspecific. No diverticuli are noted. This could be infectious or inflammatory. 2. Chronic lung changes. 3. There are new calcifications along the tip of the right lobe of the liver, and worsening bulky calcifications along the abdominal incision site. These calcifications could be reactive, due to granulomatous scarring. This is very prominent for scarring however raises concern for the possibility of metastatic calcifications which can occur in certain types of tumors. Clinical correlation recommended. 4. At least one mesenteric lymph node has increased mildly in size. The CT exam was performed using one or more of the following dose reduction techniques: Automated exposure control, adjustment of the mA and/or kV according to patient size, or use of iterative reconstruction technique. PROCEDURE INTERPRETED AT [facility] DEPARTMENT OF RADIOLOGY Final Report Signed by: Dr. Gabi Tabor
[2017-05-26] MEDS ORDERED: BISMUTH SUBSALICYLATE 30 ML/524 MG 240 ML/BOTTLE PO ONE (15:57)
[2017-05-26] MEDS: KETOROLAC 30 MG/1 ML VIAL IV PRN (22:59)
[2017-05-27] MEDS: SODIUM CHLORIDE 0.45% IV SCH ×3 (00:32→18:30)
[2017-05-27] MEDS: POTASSIUM CHLORIDE IV SCH ×3 (00:32→18:30)
[2017-05-27] MEDS: SODIUM ACETATE IV SCH ×3 (00:32→18:30)
[2017-05-27 05:36] LABS: Basophils # 0.1 10*3/uL (0.0-0.2); Basophils % 0.7 % (0.0-0.8); Eosinophils % 0.6 % (0.00-10.9); Hematocrit 31.4 VOL% (35.7-47.0); Hemoglobin 11.1 GM/DL (12.0-16.0); Immature Granulocytes % 0.4 %; Immature Granulocytes Absolute 0.03 #; Lymphocytes # 2.2 10*3/uL (1.4-4.0); Lymphocytes % 32.5 % (21.3-54.2); Mean Corpuscular HGB Conc 35.4 GM/DL (32-36); Mean Corpuscular Hemoglobin 31 PG (27-34); Monocytes # 1.6 10*3/uL (0.11-0.8); Monocytes % 23.8 % (1.7-12.7); Neutrophils # 2.9 10*3/uL (1.4-7.4); Platelet Count 220 T/CUMM (130-400); Red Blood Count 3.57 MC/CUMM (3.8-5.5); Red Cell Distribution Width 12.2 % (9.3-17.3); White Blood Count 6.9 T/CUMM (4-12)
[2017-05-27 06:08] LABS: Band Neutrophils 6 % (0-10); Hypochromasia 1+; Lymphocytes 41 % (20-55); Magnesium 2.2 MG/DL (1.8-2.4); Osmolality,Calculated 276.7 MOS/KG (273-304); Potassium 4.9 MMOL/L (3.5-5.1); Segmented Neutrophils 30 % (50-85); Total Cells Counted 100
[2017-05-27 06:09] LABS: Microcytosis Slight; Platelet Estimate Normal
[2017-05-27] MEDS: INSULIN REGULAR 100 UNIT/ML SUBCUT SCH ×4 (07:32→20:23)
[2017-05-27] MEDS: ASPIRIN EC 81 MG TABLET PO SCH (08:49)
[2017-05-27] MEDS: FLUoxetine 20 MG CAPSULE PO SCH (08:49)
[2017-05-27] MEDS: ENOXAPARIN 40 MG/0.4 ML SYRINGE SUBCUT SCH (08:49)
[2017-05-27] MEDS: ROSUVASTATIN 20 MG TABLET PO SCH (08:49)
[2017-05-27] MEDS: FAMOTIDINE 20 MG TABLET PO SCH (08:49)
[2017-05-27] MEDS: PANTOPRAZOLE 40 MG TABLET PO SCH ×2 (08:49→20:25)
--- NOTE | 2017-05-27 09:12 | Hospitalist Progress Note ---
Assessment and Plan (1) Gastroenteritis Status: Acute Assessment and plan: Due to colitis .symptomatically improved will continue to watch for tolerance of regular diet. GI following Patient has a history of colon cancer and she is followed by Dr. Ortega. CT scan did show at least one with ventricular tone noted enlargement will have her followed by Dr. Oretga Current Visit: Yes (2) Pancreatitis Status: Acute Assessment and plan: Although elevated lipase on admission which were in normal in 2 days there is no evidence of pancreatitis on CT scan. Elevated lipase was probably due GI illness not primary pancreatitis Current Visit: Yes (3) Anemia Status: Acute Assessment and plan: Stable from yesterday. Notice stool occult blood positive. Patient has history of colon cancer . GI following Current Visit: Yes (4) Essential hypertension Status: Chronic Assessment and plan: Blood pressure has been controlled Current Visit: No Hospitalist: Subjective Interval history: Patient symptomatically improved. She has not been vomiting his stool frequency has improved she is able to tolerate food. She is afebrile Exam - Constitutional Vitals: Period Temp Pulse Resp BP Sys/Bethea Pulse Ox Last 24 Hr 96.7 F-99.8 F 66-89 18-20 130-147/46-67 92-96 General appearance: no acute distress - Respiratory Respiratory exam: Present: clear to auscultation bilaterally. Absent: rales, rhonchi - Cardiovascular Cardiovascular exam: Present: regular rate and rhythm. Absent: tachycardia - GI/Abdominal GI/Abdominal exam: Present: normal bowel sounds, tenderness (Some discomfort distally in the right lower quadrant), soft. Absent: distended - Extremities Exam Extremities exam: Present: normal inspection. Absent: edema - Neurological Exam Neurological exam: Present: alert, oriented X3 Results - Labs CBC & BMP: 05/27/17 04:35 05/27/17 04:35 Lab Results: I have reviewed the past 24 hour labs
--- NOTE | 2017-05-27 10:20 | Gastrointestinal Progress Note ---
<Vickie Nye Elvie - Last Filed: 05/27/17 10:18> Assessment and Plan (1) Abdominal pain Status: Acute Assessment and plan: 05/27-abdominal pain improved, no further nausea or vomiting. Diarrhea significantly improved as well. Negative stool studies. CT findings noted as below. Plan an addendum to followed by Dr. Larose. 05/26-5 day history of left lower quadrant abdominal pain with associated intractable diarrhea, nausea and vomiting. Trace amount of occult blood in stool, otherwise negative stool studies with negative C. difficile. Improvements in nausea and vomiting with continued intractable diarrhea with incontinence and nocturnal defecation. CT of abdomen with contrast pending for this morning. Plan an addendum to follow by Dr. Larose. Current Visit: Yes Gastroenterology - PN: Subj Interval history: CC: Abdominal pain, diarrhea Patient is seen awake and alert with family at bedside. She states she is feeling much better today. She has had significantly less diarrhea and denies any abdominal pain at present time. She is tolerating small amounts of her diet as well. Abdomen is soft, nontender. She does deny any further nausea or vomiting as well. She has had 3 stools negative for Clostridium difficile as well as other stool cultures and studies negative. CT scan on yesterday noted to show diffuse colitis with one mesenteric lymph node that is increased mildly in size from her last CT scan 2 years ago. ROS: Denies shortness of breath or chest pain Exam (Progress Note) - Constitutional Vitals: Period Temp Pulse Resp BP Sys/Bethea Pulse Ox Last 24 Hr 96.7 F-99.8 F 66-89 18-20 119-147/46-67 92-96 General appearance: normal weight, no acute distress - Head Head exam: Present: normal inspection, normocephalic - Eye Eye exam: Present: other (Lids and conjunctive are unremarkable). Absent: scleral icterus - ENT ENT exam: Present: normal exam, normal oropharynx - Neck Neck exam: Present: normal inspection - Respiratory Respiratory exam: Present: clear to auscultation bilaterally. Absent: rales, rhonchi, wheezes - Cardiovascular Cardiovascular exam: Present: regular rate and rhythm. Absent: diastolic murmur , JVD, systolic murmur - GI/Abdominal GI/Abdominal exam: Present: normal bowel sounds, soft. Absent: ascites, distended, mass, organomegaly, tenderness - Extremities Exam Extremities exam: Present: normal inspection, full ROM - Back Exam Back exam: Present: normal inspection - Neurological Exam Neurological exam: Present: alert, oriented X3 - Psychiatric Psychiatric exam: Present: normal affect, normal mood - Skin Skin exam: Present: normal color, warm, dry Results - Labs CBC & BMP: 05/27/17 04:35 05/27/17 04:35 Lab Results: I have reviewed the past 24 hour labs <Ramirez Larose - Last Filed: 05/27/17 19:00> Exam (Progress Note) - Constitutional Vitals: Period Temp Pulse Resp BP Sys/Bethea Pulse Ox Last 24 Hr 96.7 F-99.8 F 66-78 18-20 119-147/55-81 93-96 Results - Labs CBC & BMP: 05/27/17 04:35 05/27/17 04:35
[2017-05-27] MEDS ORDERED: MAGNESIUM CITRATE 300 ML BOTTLE PO ONE (13:17)
[2017-05-27 13:55] LABS: Cancer Antigen 19-9 7.4 U/ML (0-37); Carcinoembryonic Antigen 1.2 NG/ML (0.0-5.0)
[2017-05-27] MEDS: ONDANSETRON 4 MG/2 ML VIAL IV PRN (15:00)
[2017-05-28] MEDS: SODIUM CHLORIDE 0.45% IV SCH ×5 (02:35→23:32)
[2017-05-28] MEDS: SODIUM ACETATE IV SCH ×5 (02:35→23:32)
[2017-05-28] MEDS: POTASSIUM CHLORIDE IV SCH ×5 (02:35→23:32)
[2017-05-28 05:10] LABS: Basophils % 0.5 % (0.0-0.8); Eosinophils # 0.2 10*3/uL (0.0-0.87); Eosinophils % 2.9 % (0.00-10.9); Hematocrit 32.3 VOL% (35.7-47.0); Hemoglobin 11.2 GM/DL (12.0-16.0); Immature Granulocytes % 0.5 %; Immature Granulocytes Absolute 0.04 #; Lymphocytes # 2.2 10*3/uL (1.4-4.0); Lymphocytes % 28.9 % (21.3-54.2); Mean Corpuscular HGB Conc 34.7 GM/DL (32-36); Mean Corpuscular Hemoglobin 31 PG (27-34); Mean Platelet Volume 12.3 FL (9.6-12.0); Monocytes # 1.1 10*3/uL (0.11-0.8); Monocytes % 13.8 % (1.7-12.7); Neutrophils # 4.1 10*3/uL (1.4-7.4); Neutrophils % 53.4 % (38.7-73.9); Platelet Count 155 T/CUMM (130-400); Red Blood Count 3.67 MC/CUMM (3.8-5.5); Red Cell Distribution Width 12.2 % (9.3-17.3); White Blood Count 7.6 T/CUMM (4-12)
[2017-05-28 05:34] LABS: Calcium 8.2 MG/DL (8.5-10.1); Magnesium 2.8 MG/DL (1.8-2.4); Osmolality,Calculated 275.7 MOS/KG (273-304); Potassium 5.2 MMOL/L (3.5-5.1)
[2017-05-28 06:02] LABS: Band Neutrophils 2 % (0-10); Lymphocytes 33 % (20-55); Metamyelocytes 1 %; Platelet Estimate Adequate; Segmented Neutrophils 56 % (50-85); Total Cells Counted 100
[2017-05-28] MEDS: INSULIN REGULAR 100 UNIT/ML SUBCUT SCH ×4 (07:47→21:16)
--- NOTE | 2017-05-28 07:59 | Oncology History&Physical ---
Assessment and Plan - Time spent with patient Time spent with patient: Greater than 30 minutes (1) History of colon cancer, stage I Status: Acute Assessment and plan: My first thoughts on these areas of calcification seen on CT scan that these are just granulomas related to her previous surgeries. I think at this point we will just follow this with close observation and repeat an image in 3-4 months as an outpatient. The large firm area on the lower part of her incision would be very easy to target with a biopsy if we ever choose to do so. She is having a colonoscopy today. It is very reassuring that her tumor markers are negative. I do not suspect recurrent disease at this time but will keep a close watch over the next few months if no obvious areas of recurrent disease are found at this time. Current Visit: Yes (2) Pancreatitis Status: Acute Current Visit: Yes (3) Gastroenteritis Status: Acute Current Visit: Yes (4) Abdominal pain Status: Acute Current Visit: Yes History of Present Illness History of present illness: Ms. Osullivan is a 72 year old female with a history of colon cancer dating back to 2013 that was an early stage lesion and was treated with surgery only. She also had some type of colon tumor removed previously but was reported as nonmalignant. Her colon cancer from 2013 had completely negative lymph nodes. No adjuvant chemotherapy was done. We will follow with observation only since. Her most recent CT scan was in May 2015 showed no evidence of disease recurrence. Since her most recent surgery she has noticed that her incision site has become more firm and developed areas of calcification. These areas have slowly worsened over the last 2 years. She is admitted now for abdominal pain, nausea, and diarrhea. She was told to have pancreatitis and possibly some underlying colitis. A CT scan done during this admission showed some irregularities on the right border of her liver and also an area of extensive calcification at her incision site. Radiology raised some concern for possible metastatic disease. Her CEA and CA-19-9 levels are both normal. Her main complaint is of persistent diarrhea. She says her nausea and abdominal pain have improved. She denies any weight loss or any problems over the last 6-12 months. Her last visit with me in clinic was sometime in the latter part of 2015 and we are only seeing her once a year for now. Home Medications Medication Instructions Recorded Confirmed Type Fluoxetine HCl 20 mg PO DAILY 06/27/15 05/25/17 History Insulin NPH Hum/Reg Insulin Hm 100 unit SUBCUT DAILY 06/27/15 05/25/17 History [Relion Novolin 70-30 Vial] Rosuvastatin [Crestor] 20 mg PO DAILY 06/27/15 05/25/17 History Verapamil HCl [Verapamil ER Cap] 180 mg PO DAILY 06/27/15 05/25/17 History metFORMIN [Glucophage] 200 mg PO DAILY 06/27/15 05/25/17 History raNITIdine HCl [Zantac Tab] 300 mg PO DAILY 06/27/15 05/25/17 History Aspirin EC Tab 81 mg PO DAILY tablet 06/28/15 05/25/17 Rx Losartan [Cozaar] 50 mg PO DAILY 05/24/17 05/25/17 History Allergies Allergy/AdvReac Type Severity Reaction Status Date / Time codeine Allergy Nausea Verified 05/24/17 19:04 Medical,Surgical,& Family Hx - Medical History Cardio: History of: Hypertension No history of: Cerebrovascular Disease Neurology: No history of: Cerebrovascular Accident Endocrine: History of: Diabetes Mellitus (IDDM), Diabetes Mellitus (NIDDM), Dyslipidemia Rheumatology: No history of;: Rheumatoid Arthritis, Systemic Lupus Erythematosus Respiratory: History of: Obstructive Sleep Apnea No history of: Asthma, Respiratory Problems Genitourinary: No history of: Recurring Urinary Tract Infections Gastrointestinal: History of: GERD, Liver Problems (fatty liver), Gastrointestinal Cancer (malignant polyp removed), GI Problems (gastritis 1999) Musculoskeletal: History of: Musculoskeletal Problems (ARTHITIS "EVERYWHERE") Hematology: No history of: Blood Transfusion Reaction, Bleeding Problems Other: History of: Cancer (COLON CA) - Surgical History Cardiac Surgeries: Sugical HX of: Cardiac Catheterization Patient Denies: Cardiac Surgery Neurologic Surgeries: Patient denies: Neurologic Surgery HEENT Surgeries: Surgical HX of: Tonsilectomy & Adenoidectomy Abdominal Surgeries: Surgical HX of: Abdominal Surgery (COLON CA REMOVAL 2013), Appendectomy, Cholecystectomy, Colonoscopy, EGD Reproductive Surgeries: Surgical HX of;: Section, Hysterectomy (FULL) - Family History Family History: Reports;: Family Cancer (FATHER- COLON CA), Family Diabetes ( MOTHER, FATHER, ALL SIBLINGS), Family Heart Disease (4 BROTHERS, MOTHER, FATHER) , Family Hypertension (ALL SIBLINGS, MOTHER AND FATHER) Denies;: Family Psychiatric Problems, Family Stroke - Social History Smoking Status: Never smoker Frequency of Alcohol Use: None Type of Drug Use: None 12 point system: reviewed and no additional remarkable complaints except as stated - Constitutional Constitutional: Present: fatigue. Absent: chills, fever(s) - Cardiovascular Cardiovascular ROS IM: Absent: chest pain, edema - Gastrointestinal Gastrointestinal: Present: abdominal pain, diarrhea, loose stools, nausea, vomiting. Absent: hematemesis, jaundice Exam - Constitutional Vitals: Period Temp Pulse Resp BP Sys/Bethea Pulse Ox Last 24 Hr 96.7 F-98.7 F 67-73 20-20 110-142/57-81 93-98 General appearance: normal weight, no acute distress - Head Head Exam: Present: normocephalic, atraumatic - Eye Eye Exam: Present: EOMI Pupils: Present: PERRL - ENT ENT exam: Present: normal exam, normal oropharynx - Neck Neck exam: Absent: lymphadenopathy, thyromegaly - Respiratory Respiratory exam: Present: CTAB. Absent: wheezes - Cardiovascular Cardiovascular exam: Present: RRR. Absent: JVD - GI/Abdominal GI/Abdominal exam: Present: soft. Absent: ascites, distended, firm, mass - Neurological Exam Neurological exam: Present: alert, oriented X3 - Psychiatric Psychiatric exam: Present: normal affect, normal mood - Skin Skin exam: Present: warm, dry Results - Labs CBC & BMP: 05/28/17 04:17 05/28/17 04:17 Lab Results: I have reviewed the past 24 hour labs - Diagnostic Findings Procedure: CT: report reviewed by me
--- NOTE | 2017-05-28 09:06 | Hospitalist Progress Note ---
Assessment and Plan (1) Gastroenteritis Status: Acute Assessment and plan: Patient with acute gastroenteritis with finding of colitis on CT scan patient does have history of colon cancer required subtotal colectomy in the past.. symptomatically improved GI plan to do a colonoscopy today found to the finding and recommendation Also appreciated patient seen by Dr. Ortega as patient has finding of abnormal CT imaging. He plan to follow-up with repeat imaging in 3-4 months Current Visit: Yes (2) Pancreatitis Status: Acute Assessment and plan: Although elevated lipase on admission which were in normal in 2 days there is no evidence of pancreatitis on CT scan. Elevated lipase was probably due GI illness not primary pancreatitis patient does not have any abdominal pain or tenderness now Current Visit: Yes (3) Anemia Status: Acute Assessment and plan: Hemoglobin hematocrit stable now Current Visit: Yes (4) Essential hypertension Status: Chronic Assessment and plan: Blood pressure has been controlled Current Visit: No Hospitalist: Subjective Interval history: Abdominal pain is significantly improved. Afebrile. GI plan to do colonoscopy today. She was n.p.o. last night so did not have diarrhea. She did have some nausea vomiting with GI preparation but at present feeling better and waiting for colonoscopy. She was also seen by Dr. Shen and plan to do a repeat CT scan in 3-4 months as outpatient for follow-up. Exam - Constitutional Vitals: Period Temp Pulse Resp BP Sys/Bethea Pulse Ox Last 24 Hr 96.7 F-98.7 F 65-73 18-20 110-142/52-81 93-98 General appearance: no acute distress - Respiratory Respiratory exam: Present: clear to auscultation bilaterally. Absent: rales, rhonchi - Cardiovascular Cardiovascular exam: Present: regular rate and rhythm. Absent: tachycardia - GI/Abdominal GI/Abdominal exam: Soft nontender no distention bowel sounds present - Extremities Exam Extremities exam: Present: normal inspection. Absent: edema - Neurological Exam Neurological exam: Present: alert, oriented X3 Results - Labs CBC & BMP: 05/28/17 04:17 05/28/17 04:17 Lab Results: I have reviewed the past 24 hour labs
[2017-05-28] MEDS: FLUoxetine 20 MG CAPSULE PO SCH (09:42)
[2017-05-28] MEDS: PANTOPRAZOLE 40 MG TABLET PO SCH ×2 (09:42→21:17)
[2017-05-28] MEDS: ASPIRIN EC 81 MG TABLET PO SCH (09:42)
[2017-05-28] MEDS: ENOXAPARIN 40 MG/0.4 ML SYRINGE SUBCUT SCH (09:42)
[2017-05-28] MEDS: ROSUVASTATIN 20 MG TABLET PO SCH (09:42)
[2017-05-28] MEDS: FAMOTIDINE 20 MG TABLET PO SCH (09:42)
--- NOTE | 2017-05-28 11:10 | History and Physical Update ---
History and Physical Update - Physical Exam Mental Status: alert and oriented Heart: regular rate and rhythm Lung: clear to auscultation Abdomen: within normal limits Vitals: within normal limits
[2017-05-28] MEDS ORDERED: PROPOFOL 200 MG/20 ML VIAL IV ONE (11:12)
[2017-05-28] MEDS ORDERED: LIDOCAINE 2% 5 ML VIAL ONE (11:12)
--- NOTE | 2017-05-28 11:32 | Operative Note ---
Date of procedure: 05/28/17 Pre-op diagnosis: Abnormal CT with colitis Procedure: Colonoscopy with biopsy 72-year-old female admitted with abdominal pain diarrhea nausea and vomiting CT suggesting diffuse colitis. She does have a previous history of colon cancer is been resected. Now for colonoscopy to further evaluate the above. Informed consent was obtained the patient She was sedated with MAC anesthesia per anesthesia protocol. Patient was placed in the left lateral decubitus position, digital exam was normal. The Olympus flexible video colonoscope [place] canal advanced to level of the ileocolonic anastomosis. Findings: Ileocolonic anastomosis without evidence of recurrent tumor. There is some superficial ulceration biopsies were taken. The remaining left colon was evaluated and there are skipped areas of inflammatory change suggestive of the possibility of Crohn's. Biopsies were taken of these areas. The rectum does appear to be spared also raising the possibility of ischemia. No large masses tumors or polyps were identified. The patient tolerated procedure well she is discharged recovery in good condition. Postop diagnosis: 1. Acute colitis with superficial ulceration and skip areas. Will follow-up pathology report for the possibility of Crohn's versus ischemia. Will go ahead and institute treatment with Flagyl empirically for possible Crohn's. No specific therapy is indicated for ischemic colitis and typically is self- limiting. Anesthesia: MAC Surgeon / Physician: Ramirez Larose Estimated blood loss: none Specimens: other (Superficial ulceration possible Crohn's versus ischemia) Condition: stable Disposition: post procedure unit Results - Labs CBC & BMP: 05/28/17 04:17 05/28/17 04:17 Discharge Plan - Discharge Medications No Action metFORMIN [Glucophage] 200 mg PO DAILY Verapamil HCl [Verapamil ER Cap] 180 mg PO DAILY Rosuvastatin [Crestor] 20 mg PO DAILY raNITIdine HCl [Zantac Tab] 300 mg PO DAILY Insulin NPH Hum/Reg Insulin Hm [Relion Novolin 70-30 Vial] 100 unit SUBCUT DAILY Fluoxetine HCl 20 mg PO DAILY Aspirin EC Tab 81 mg PO DAILY tablet Losartan [Cozaar] 50 mg PO DAILY - Follow Up or Referral - Forms/Instructions
--- NOTE | 2017-05-28 11:33 | Anesthesia Post-Op ---
Anesthesia Post OP - Post Ansesthetic Evaluation Patient seen in post op: Yes Resp: within normal limits CV: within normal limits Mental: within normal limits Temp: within normal limits [id number]: within normal limits Nausea and Vomiting: within normal limits Pain: within normal limits
[2017-05-28] MEDS: metroNIDAZOLE 250 MG TABLET PO SCH ×2 (14:23→21:17)
[2017-05-29] MEDS: SODIUM CHLORIDE 0.45% IV SCH ×4 (02:53→09:51)
[2017-05-29] MEDS: POTASSIUM CHLORIDE IV SCH ×4 (02:53→09:51)
[2017-05-29] MEDS: SODIUM ACETATE IV SCH ×4 (02:53→09:51)
[2017-05-29] MEDS: FAMOTIDINE 20 MG TABLET PO SCH (08:08)
[2017-05-29] MEDS: ROSUVASTATIN 20 MG TABLET PO SCH (08:08)
[2017-05-29] MEDS: INSULIN REGULAR 100 UNIT/ML SUBCUT SCH ×3 (08:09→15:58)
[2017-05-29] MEDS: metroNIDAZOLE 250 MG TABLET PO SCH ×2 (08:09→15:58)
[2017-05-29] MEDS: ENOXAPARIN 40 MG/0.4 ML SYRINGE SUBCUT SCH (08:09)
[2017-05-29] MEDS: FLUoxetine 20 MG CAPSULE PO SCH (08:09)
[2017-05-29] MEDS: ASPIRIN EC 81 MG TABLET PO SCH (08:09)
[2017-05-29] MEDS: PANTOPRAZOLE 40 MG TABLET PO SCH (08:09)
--- NOTE | 2017-05-29 08:51 | Gastrointestinal Progress Note ---
<DevmarryVickie Elvie - Last Filed: 05/29/17 08:49> Assessment and Plan (1) Abdominal pain Status: Acute Assessment and plan: 05/29-colonoscopy report noted as below. Biopsy still pending at this time. Tolerating regular diet. Denies abdominal pain. Diarrhea has improved at present time. Plan an addendum follow Dr. Larose. 05/27-abdominal pain improved, no further nausea or vomiting. Diarrhea significantly improved as well. Negative stool studies. CT findings noted as below. Plan an addendum to followed by Dr. Larose. 05/26-5 day history of left lower quadrant abdominal pain with associated intractable diarrhea, nausea and vomiting. Trace amount of occult blood in stool, otherwise negative stool studies with negative C. difficile. Improvements in nausea and vomiting with continued intractable diarrhea with incontinence and nocturnal defecation. CT of abdomen with contrast pending for this morning. Plan an addendum to follow by Dr. Larose. Current Visit: Yes Gastroenterology - PN: Subj Interval history: CC: Colitis Patient seen awake and alert sitting up in bed with family at bedside. States she had an uneventful night. She is tolerating regular diet at this time and denies any abdominal pain, nausea or vomiting associated with this. She states that she continues to have diarrhea however is only every hour instead of times an hour. She continues to have watery stools however has not had solid food in over a week. She is afebrile. Abdomen soft, nontender. C scope findings on yesterday with acute colitis with superficial ulcerations and skip areas with pathology currently pending at this time. She has had her oral Flagyl started and is tolerating this at present time. She states that she does feel like she is well enough to go home at this time. ROS: Denies shortness of breath or chest pain Exam (Progress Note) - Constitutional Vitals: Period Temp Pulse Resp BP Sys/Bethea Pulse Ox Last 24 Hr 97.3 F-98.1 F 63-74 15-20 119-160/55-72 94-99 General appearance: normal weight, no acute distress - Head Head exam: Present: normal inspection, normocephalic - Eye Eye exam: Present: other (Lids and conjunctive are unremarkable). Absent: scleral icterus - ENT ENT exam: Present: normal exam, normal oropharynx - Neck Neck exam: Present: normal inspection - Respiratory Respiratory exam: Present: clear to auscultation bilaterally. Absent: rales, rhonchi, wheezes - Cardiovascular Cardiovascular exam: Present: regular rate and rhythm. Absent: diastolic murmur , JVD, systolic murmur - GI/Abdominal GI/Abdominal exam: Present: normal bowel sounds, soft. Absent: ascites, distended, mass, organomegaly, tenderness - Extremities Exam Extremities exam: Present: normal inspection, full ROM - Back Exam Back exam: Present: normal inspection - Neurological Exam Neurological exam: Present: alert, oriented X3 - Psychiatric Psychiatric exam: Present: normal affect, normal mood - Skin Skin exam: Present: normal color, warm, dry Results - Labs CBC & BMP: 05/28/17 04:17 05/28/17 04:17 Lab Results: I have reviewed the past 24 hour labs Specialty Discharge - Follow Up or Referrals Follow up with: Ramirez Larose MD [Physician] - <Ramirez Larose - Last Filed: 05/29/17 17:36> Exam (Progress Note) - Constitutional Vitals: Period Temp Pulse Resp BP Sys/Bethea Pulse Ox Last 24 Hr 97.3 F-97.8 F 66-74 16-20 125-136/59-67 94-97 Results - Labs CBC & BMP: 05/28/17 04:17 05/28/17 04:17
--- NOTE | 2017-05-29 10:58 | Hospitalist Progress Note ---
Assessment and Plan (1) Gastroenteritis Status: Acute Assessment and plan: Patient with acute gastroenteritis with finding of colitis on CT scan . Colonoscopy yesterday revealed acute colitis with superficial ulceration and skip lesions. Current Visit: Yes (2) Pancreatitis Status: Acute Assessment and plan: Although elevated lipase on admission which were in normal in 2 days there is no evidence of pancreatitis on CT scan. Elevated lipase was probably due GI illness not primary pancreatitis patient does not have any abdominal pain or tenderness now Current Visit: Yes (3) Anemia Status: Acute Assessment and plan: Hemoglobin hematocrit stable per lab work yesterday. She does not report any melena hematochezia Current Visit: Yes (4) Essential hypertension Status: Chronic Assessment and plan: Blood pressure has been controlled Current Visit: No (5) Swelling of both lips Status: Acute Assessment and plan: I am not sure what caused the swelling of lips she does not have any other edema of the oral mucosa or tongue. She was on losartan at home but it has been discontinued here when she was admitted with the gastroenteritis and volume depletion. She does not need to take this anymore. I will check ESR and CRP C4 and repeat LFTs. Current Visit: Yes Hospitalist: Subjective Interval history: Abdominal pain has almost resolved. She has been able to tolerate a regular diet he still has some loose bowel movement but significantly better than before. Reported swelling of the lips without any hoarseness of voice tongue swelling Exam - Constitutional Vitals: Period Temp Pulse Resp BP Sys/Bethea Pulse Ox Last 24 Hr 97.3 F-98.1 F 63-74 15-20 119-158/55-67 94-99 General appearance: no acute distress - ENT ENT exam: Present: other (Mild swelling of the lips but no edema of the tongue noted) - Respiratory Respiratory exam: Present: clear to auscultation bilaterally. Absent: rales, rhonchi - Cardiovascular Cardiovascular exam: Present: regular rate and rhythm. Absent: tachycardia - GI/Abdominal GI/Abdominal exam: Present: normal bowel sounds, soft. Absent: distended, tenderness - Extremities Exam Extremities exam: Absent: edema - Neurological Exam Neurological exam: Present: alert, oriented X3 Results - Labs CBC & BMP: 05/28/17 04:17 05/28/17 04:17 Lab Results: I have reviewed the past 24 hour labs
[2017-05-29 11:53] LABS: Albumin 2.8 G/DL (3.4-5.0); Bilirubin,Direct 0.2 MG/DL (0.0-0.20); Bilirubin,Indirect 0.4 MG/DL (0.0-1.0); Bilirubin,Total 0.6 MG/DL (0.2-1.0); Total Protein 6.4 G/DL (6.4-8.3)
[2017-05-29] MEDS: LOPERAMIDE 2 MG CAPSULE PO PRN (12:00)
[2017-05-29] MEDS ORDERED: diphenhydrAMINE 50 MG/1 ML VIAL IV ONE (12:23)
[2017-05-29] MEDS ORDERED: predniSONE 20 MG TABLET PO SCH (12:30)
--- NOTE | 2017-05-29 16:04 | Discharge Summary ---
Hospital Course - Hospital Course Hospital Course: Ms. Osullivan is a 72 year old female past medical history significant for diabetes includes, hypercholesterolemia, hypertension and colon cancer. She had partial colectomy in 2013 in 2013. She had colonoscopy last year. She was admitted on May 24, 2017 with complaint of abdominal pain nausea vomiting and diarrhea. She reported pain in the abdomen all over but then it was more localized to the left side of the abdomen. she had multiple episodes of loose stool about 9-10 per day. She also report low-grade fever. She was recently on antibiotics for a sinus. She had an evaluation after his admission here but C differential was negative. She had elevated lipase at 820 on admission. Next day it was down to 607. Although she had a trace amount of the stool on occult exam her hemoglobin hematocrit stay stable during the hospital stay. She developed mild daycare during the admission but her creatinine was down to 1.0 data today. She had a CAT which was consistent with a diffuse colitis. GI was consulted and patient underwent colonoscopy yesterday. She was noted to have acute colitis with superficial ulceration and skip lesions. Crohn's disease with the past part of the differential and Dr. Larose has placed her on Flagyl empirically yesterday. Her symptoms improved and she was able to even eat solid food her bowel movement is less frequent now. She was to be discharged this morning but reported swelling of her lips it was more red and swollen at the margin spatially left side. She had been on losartan at home but was not given for about a week. I check her liver panel which were unremarkable her C4 was not low C-reactive protein was elevated but it is better than what was yesterday. She had elevated ESR but she is having acute infection for which she is being treated. I gave her dose of Benadryl. Swelling/admitted to our progress she has no tongue swelling or other swelling of the buccal mucosa. She remembered that she put hand income tax advisor and may have rubbed on the lips accidentally and believe that has caused her problem. Patient is herself a retired nurse practitioner. Since her symptoms are better and the biopsy visible is expected to come next week. She will be discharged home she knows how to contact Dr. Larose office to obtain biopsy result I will continue the Flagyl as Dr. Larose has recommended till the definite plan is made after biopsy result. I will ask her to take H2 H1 [place] and prednisone for 2-3 days to make sure but I build do not believe she has angioedema and may have just local contact dermatitis. Diagnosis - Discharge Diagnosis (1) Gastroenteritis Status: Acute (2) Pancreatitis Status: Ruled-out (3) Anemia Status: Chronic (4) Essential hypertension Status: Chronic (5) Swelling of both lips Status: Acute Discharge Plan - Discharge Data Disposition: Disch To Home/Self Care Condition at Discharge: Stable Discharge Diet: advance to your usual diet Activity: resume usual activities as tolerated - Discharge Medications New Pantoprazole Tab [Protonix Tab] 40 mg PO BID #0 tablet metroNIDAZOLE TAB [Flagyl Cap/Tab] 250 mg PO TID #30 tablet predniSONE TAB [PredniSONE] 40 mg PO DAILY #2 tablet Continue metFORMIN [Glucophage] 200 mg PO DAILY Verapamil HCl [Verapamil ER Cap] 180 mg PO DAILY Rosuvastatin [Crestor] 20 mg PO DAILY raNITIdine HCl [Zantac Tab] 300 mg PO DAILY Insulin NPH Hum/Reg Insulin Hm [Relion Novolin 70-30 Vial] 100 unit SUBCUT DAILY Fluoxetine HCl 20 mg PO DAILY Aspirin EC Tab 81 mg PO DAILY tablet Losartan [Cozaar] 50 mg PO DAILY - Follow Up or Referral - Forms/Instructions Exam - Constitutional Vitals: Period Temp Pulse Resp BP Sys/Bethea Pulse Ox Last 24 Hr 97.3 F-98.1 F 65-74 16-20 125-136/55-67 94-97 See today's progress note. Discharge Results Procedures and tests throughout hospitalization: Pending Orders 05/25/17 12:10 Occult Blood, Stool Routine 05/28/17 12:24 PROMETHEUS IBD sgi Diagnositic Stat Labs on day of discharge: Labs from last 24 hours 05/29/17 05/29/17 05/29/17 15:08 11:08 11:08 ESR W[place]gren POC Glucose 256 H Total Bilirubin 0.60 Direct Bilirubin 0.20 Indirect Bilirubin 0.4 AST 20 ALT 25 Alkaline Phosphatase 50 C-Reactive Protein 2.95 H Total Protein 6.4 Albumin 2.8 L Complement C4 49.6 H 05/29/17 05/29/17 05/29/17 11:08 10:47 07:14 ESR [place]gren 113 H POC Glucose 183 H 121 H Total Bilirubin Direct Bilirubin Indirect Bilirubin AST ALT Alkaline Phosphatase C-Reactive Protein Total Protein Albumin Complement C4 05/28/17 05/28/17 19:19 14:59 ESR [place]gren POC Glucose 182 H 172 H Total Bilirubin Direct Bilirubin Indirect Bilirubin AST ALT Alkaline Phosphatase C-Reactive Protein Total Protein Albumin Complement C4 DS: Provider Date of admission: 05/24/17 22:38 Primary care physician: . No PCP Attending physician on admission: Benji Gardner MD Consults: 05/26/17 09:16 Consult to Physician [CONS] Routine Comment: Patient with h/o colon cancer positive hemoccult Consulting Provider: Ramirez Larose Consulting Provider Notified: No When should Consulting Provider be notified: Now Consult to Specialist Group: Gastroenterology When should Consulting Provider be notified: Now Person Notified: LEONA THURMAN Date Notified: 05/26/17 Time Notified: 10:44 05/27/17 09:16 Consult to Physician [CONS] Routine Comment: known to him for colon cancer Consulting Provider: Jessee Ortega Consulting Provider Notified: No When should Consulting Provider be notified: Now Person Notified: jessica Date Notified: 05/27/17 Time Notified: 10:01 Discharging clinician: Shantanu Floyd MD
[2017-05-29 17:39] VITALS: BP 130/68
--- NOTE | 2017-05-29 18:26 | Pathology Report from [facility] ---
[facility] ACCESSION # : [id number] PATIENT NAME : Becky Osullivan ORDERING DR : ALEX GRANDA MD CLINICAL HX: Abdominal pain - Abnormal CT POST-OP DX: Colitis - Possible ischemia - Possible Crohns SPECIMEN INFO: Random colon biopsies GROSS DESCRIPTION: The specimen is received in formalin labeled with the patients name and consists of a 0.4 x 0.8 cm aggregate of pink-roldan mucosal tissue. Submitted in one cassette. DIAGNOSIS FOR BECKY OSULLIVAN: RANDOM COLON BIOPSY: Moderate chronic inflammation and focal acute cryptitis, present in all biopsy fragments, consistent with idiopathic inflammatory bowel disease (no granulomas identified). No evidence of malignancy. COLLECTED DATE: 05/28/2017 [facility] REPORT DATE: 05/29/2017 ELECTRONICALLY SIGNED BY: Ras Gomez III, M.D. 05/29/2017 - 9:25:02 [facility]
== END 2017-05-29 18:19 | disposition home or self-care (01) | DRG 392 ==
LOC: N.ED 18:51 → SUATTDRO 22:37 → N.EDINP 22:37 → N.5E 23:07
PROVIDERS: ADMIT Internal Medicine; ATTEND Internal Medicine
PROC: COLONBX (2017-05-28 11:05)

== ENCOUNTER 2017-09-03 21:58 | Observation (INO) ==
[2017-09-03] MEDS ORDERED: PANTOPRAZOLE 40 MG VIAL IV STA (23:01)
[2017-09-03] MEDS ORDERED: SODIUM CHLORIDE 0.9% 500 ML IV STA (23:01)
[2017-09-03] MEDS ORDERED: ALUM/MAG/SIMETH/LIDO VISC 1:1 30 ML BOTTLE PO STA (23:01)
[2017-09-03] MEDS ORDERED: ONDANSETRON 4 MG/2 ML VIAL IV STA (23:01)
[2017-09-03] MEDS ORDERED: HYDROmorphone 2 MG/1 ML VIAL IV STA (23:01)
[2017-09-03] MEDS ORDERED: ONDANSETRON 4 MG/2 ML VIAL ONE (23:40)
[2017-09-03] MEDS ORDERED: PANTOPRAZOLE 40 MG VIAL IV ONE (23:40)
[2017-09-03] MEDS ORDERED: HYDROmorphone 2 MG/1 ML VIAL ONE (23:40)
[2017-09-03] MEDS ORDERED: ALUM/MAG/SIMETH/LIDO VISC 1:1 30 ML BOTTLE PO ONE (23:41)
[2017-09-03 23:48] LABS: Basophils # 0.1 10*3/uL (0.0-0.2); Basophils % 0.5 % (0.0-0.8); Eosinophils % 0.3 % (0.00-10.9); Hematocrit 35.1 VOL% (35.7-47.0); Hemoglobin 12.7 GM/DL (12.0-16.0); Immature Granulocytes % 0.4 %; Immature Granulocytes Absolute 0.06 #; Lymphocytes # 2.2 10*3/uL (1.4-4.0); Lymphocytes % 14.4 % (21.3-54.2); Mean Corpuscular HGB Conc 36.2 GM/DL (32-36); Mean Corpuscular Hemoglobin 31 PG (27-34); Mean Corpuscular Volume 86.9 FL (87-102); Mean Platelet Volume 11.4 FL (9.6-12.0); Monocytes # 1.2 10*3/uL (0.11-0.8); Monocytes % 7.8 % (1.7-12.7); Neutrophils # 11.6 10*3/uL (1.4-7.4); Neutrophils % 76.6 % (38.7-73.9); Platelet Count 319 T/CUMM (130-400); Red Blood Count 4.04 MC/CUMM (3.8-5.5); White Blood Count 15.2 T/CUMM (4-12)
[2017-09-03 23:57] LABS: Lactic Acid 1.7 MMOL/L (0.4-2.0)
[2017-09-04] LABS: Alanine Aminotransferase 30 U/L (13-56); Albumin 3.8 G/DL (3.4-5.0); Alkaline Phosphatase 50 U/L (45-117); Amylase 68 U/L (25-115); Aspartate Amino Transferase 25 U/L (0-37); Blood Urea Nitrogen 23 MG/DL (7-18); Calcium 9.7 MG/DL (8.5-10.1); Glucose 230 MG/DL (74-106); Magnesium 1.8 MG/DL (1.8-2.4); Osmolality,Calculated 285.7 MOS/KG (273-304); Potassium 4.2 MMOL/L (3.5-5.1); Sodium 138 MMOL/L (136-145); Total Protein 7.5 G/DL (6.4-8.3); Troponin I Only < 0.015 NG/ML (0.00-0.045)
[2017-09-04] MEDS ORDERED: ACETAMINOPHEN 325 MG TABLET PO PRN (00:30)
[2017-09-04] MEDS ORDERED: ONDANSETRON 4 MG/2 ML VIAL IV PRN ×2 (00:30→03:10)
[2017-09-04] MEDS ORDERED: SODIUM CHLORIDE 0.9% 1,000 ML IV SCH (00:30)
[2017-09-04] MEDS ORDERED: cefTRIAXone 1,000 MG in SODIUM CHLORIDE 0.9% 100 ML IV SCH (01:00)
[2017-09-04] MEDS ORDERED: MORPHINE 2 MG/1 ML SYRINGE IV PRN (03:10)
[2017-09-04] MEDS ORDERED: DEXTROSE 50% 25 GM/50 ML VIAL IV PRN (03:28)
[2017-09-04] MEDS ORDERED: GLUCAGON 1 MG VIAL IM PRN (03:28)
[2017-09-04] MEDS: metroNIDAZOLE INJ 500 MG in PREMIX 1 EACH IV SCH ×3 (05:04→20:59)
[2017-09-04] MEDS: SODIUM CHLORIDE 0.9% 1,000 ML IV SCH ×2 (05:04→23:02)
[2017-09-04 05:59] LABS: Basophils # 0.1 10*3/uL (0.0-0.2); Basophils % 0.4 % (0.0-0.8); Eosinophils # 0.1 10*3/uL (0.0-0.87); Eosinophils % 0.8 % (0.00-10.9); Hematocrit 33.5 VOL% (35.7-47.0); Hemoglobin 11.9 GM/DL (12.0-16.0); Immature Granulocytes % 0.3 %; Immature Granulocytes Absolute 0.04 #; Lymphocytes # 2.5 10*3/uL (1.4-4.0); Lymphocytes % 19.6 % (21.3-54.2); Mean Corpuscular HGB Conc 35.5 GM/DL (32-36); Mean Corpuscular Hemoglobin 31 PG (27-34); Mean Corpuscular Volume 87.9 FL (87-102); Mean Platelet Volume 11.1 FL (9.6-12.0); Monocytes # 1.3 10*3/uL (0.11-0.8); Monocytes % 10.3 % (1.7-12.7); Neutrophils # 8.9 10*3/uL (1.4-7.4); Neutrophils % 68.6 % (38.7-73.9); Platelet Count 314 T/CUMM (130-400); Red Blood Count 3.81 MC/CUMM (3.8-5.5); Red Cell Distribution Width 12.2 % (9.3-17.3); White Blood Count 12.9 T/CUMM (4-12)
[2017-09-04] MEDS: LEVOFLOXACIN INJ 500 MG in PREMIX 1 EACH IV SCH (06:22)
[2017-09-04 06:30] LABS: Calcium 9.4 MG/DL (8.5-10.1); Osmolality,Calculated 287.1 MOS/KG (273-304); Potassium 4.1 MMOL/L (3.5-5.1)
[2017-09-04] MEDS ORDERED: INFLUENZA VIRUS VACCINE 0.5 ML SYRINGE IM ONE (09:00)
[2017-09-04] MEDS ORDERED: PANTOPRAZOLE 40 MG TABLET PO SCH (09:00)
[2017-09-04] MEDS: INSULIN LISPRO 100 UNIT/ML SUBCUT SCH ×5 (09:19→21:04)
[2017-09-04] MEDS: ENOXAPARIN 40 MG/0.4 ML SYRINGE SUBCUT SCH (09:53)
[2017-09-04] MEDS ORDERED: MESALAMINE 800 MG TABLET PO SCH (15:00)
[2017-09-04] MEDS: MESALAMINE 250 MG CAPSULE PO SCH ×2 (16:56→20:57)
[2017-09-04] MEDS ORDERED: LOSARTAN 50 MG TABLET PO SCH (21:00)
[2017-09-04] MEDS ORDERED: VERAPAMIL SR 180 MG TABLET PO SCH (21:00)
[2017-09-04] MEDS ORDERED: MAGNESIUM OXIDE 400 MG TABLET PO SCH (21:00)
[2017-09-04] MEDS ORDERED: ASPIRIN EC 81 MG TABLET PO SCH (21:00)
[2017-09-04] MEDS ORDERED: metFORMIN 500 MG TABLET PO SCH (21:00)
[2017-09-04] MEDS ORDERED: ROSUVASTATIN 20 MG TABLET PO SCH (21:00)
[2017-09-04] MEDS ORDERED: FLUoxetine 20 MG CAPSULE PO SCH (21:00)
[2017-09-04] MEDS ORDERED: FAMOTIDINE 20 MG TABLET PO SCH (21:00)
[2017-09-05] MEDS: metroNIDAZOLE INJ 500 MG in PREMIX 1 EACH IV SCH ×2 (05:02→12:59)
[2017-09-05] MEDS: INSULIN LISPRO 100 UNIT/ML SUBCUT SCH ×2 (08:49→12:01)
[2017-09-05] MEDS: MESALAMINE 250 MG CAPSULE PO SCH ×2 (08:50→13:51)
[2017-09-05] MEDS: ENOXAPARIN 40 MG/0.4 ML SYRINGE SUBCUT SCH (08:53)
[2017-09-05] MEDS: LEVOFLOXACIN INJ 500 MG in PREMIX 1 EACH IV SCH (08:55)
[2017-09-05 10:41] LABS: Basophils # 0.1 10*3/uL (0.0-0.2); Basophils % 0.6 % (0.0-0.8); Eosinophils # 0.2 10*3/uL (0.0-0.87); Eosinophils % 1.9 % (0.00-10.9); Hematocrit 35.4 VOL% (35.7-47.0); Hemoglobin 12.6 GM/DL (12.0-16.0); Immature Granulocytes % 0.2 %; Immature Granulocytes Absolute 0.02 #; Lymphocytes # 2.8 10*3/uL (1.4-4.0); Lymphocytes % 27.3 % (21.3-54.2); Mean Corpuscular HGB Conc 35.6 GM/DL (32-36); Mean Corpuscular Hemoglobin 32 PG (27-34); Mean Corpuscular Volume 88.9 FL (87-102); Mean Platelet Volume 10.7 FL (9.6-12.0); Monocytes # 0.8 10*3/uL (0.11-0.8); Monocytes % 7.6 % (1.7-12.7); Neutrophils # 6.4 10*3/uL (1.4-7.4); Neutrophils % 62.4 % (38.7-73.9); Platelet Count 301 T/CUMM (130-400); Red Blood Count 3.98 MC/CUMM (3.8-5.5); Red Cell Distribution Width 12.1 % (9.3-17.3); White Blood Count 10.3 T/CUMM (4-12)
[2017-09-05 11:30] VITALS: BP 120/50
[2017-09-05] MEDS ORDERED: PNEUMOCOCCAL VACCINE (13 VALENT) 0.5 ML SYRINGE IM ONE (14:11)
[2017-09-06 15:31] LABS: Myeloperoxidase Antibody < 0.2 U
== END 2017-09-05 15:20 | disposition home or self-care (01) ==
LOC: N.2E 21:58 → N.ED 21:58 → N.SDSINP 23:59 → N.ED 23:59 → N.EDINP 09-04 00:30 → N.2E 09-04 04:45 → UNDODEPREF 09-10 09:55
PROVIDERS: ADMIT Internal Medicine Geriatric Medicine; ATTEND Internal Medicine Geriatric Medicine